=== PATIENT | female | born 1990 | race Caucasian/White ===

== ENCOUNTER 2017-12-25 08:20 | Emergency (ER) | payer MEDICAID ==
[~2017-12-25] VITALS: Ht 400 cm; Wt 92.1 kg
[~2017-12-25 08:20] MED LIST: ALBU8.5H8 IH; CYCL-1 PO; FIORINAL PO; FLUT16SP26 BOTHNARES; KEP500T PO; LEVE500T PO; ONDA4TAB6 PO; TIZA2CAP7 PO; [UNRECOGNIZED DRUG - OTHER]
[2017-12-25 08:25] VITALS: BP 156/101
[2017-12-25] MEDS ORDERED: CLIN300C53 PO (10:10)
[2017-12-25] MEDS ORDERED: HYDR-565 PO (10:10)
== END 2017-12-25 10:21 | disposition home or self-care (01) ==
LOC: ER 08:21
DX: K08.89 Other specified disorders of teeth and supporting structures (principal); E11.9 Type 2 diabetes mellitus without complications; G89.29 Other chronic pain; Z56.0 Unemployment, unspecified; Z88.0 Allergy status to penicillin; Z88.8 Allergy status to other drugs, medicaments and biological substances; Z79.899 Other long term (current) drug therapy
CPT/HCPCS: 99283

== ENCOUNTER 2018-09-17 17:43 | Emergency (ER) | payer MEDICARE, MEDICAID ==
[~2018-09-17] VITALS: Ht 157.5 cm; Wt 84.0 kg
[2018-09-17 17:47] VITALS: BP 133/82
[2018-09-17 19:12] LABS: CLARITY,URINE SLIGHTLY CLOUDY (Clear); COLOR,URINE YELLOW (Yellow); GLUCOSE, URINE NEGATIVE (Neg); KETONES,URINE 15 mg/dl (Neg); LEUKOCYTE ESTERASE ,URINE NEGATIVE (Neg); NITRITES, URINE NEGATIVE (Neg); OCCULT BLOOD,URINE NEGATIVE (Neg); PH,URINE 6.5 (4.8-8.0); PROTEIN,URINE NEGATIVE (Neg); URINE HCG POSITIVE (NEG); UROBILINOGEN,URINE 0.2 E.U/dL (0.2-1.0)
[2018-09-17 19:21] LABS: UA COLLECTION TYPE CLN CATCH MIDSTREAM
[2018-09-17 19:37] LABS: MUCUS STRANDS MANY /LPF (Neg); SQUAMOUS EPITHELIAL CELL,UR MANY /LPF (FEW); WBC,URINE 0-4 /HPF (0-4)
[2018-09-17 19:38] LABS: BACTERIA,URINE 2+ /HPF (Neg); RBC,URINE 0-2 /HPF (0-2)
== END 2018-09-17 20:02 | disposition home or self-care (01) ==
LOC: ER 17:44
DX: O26.891 Other specified pregnancy related conditions, first trimester (principal); O21.9 Vomiting of pregnancy, unspecified; J45.909 Unspecified asthma, uncomplicated; E11.9 Type 2 diabetes mellitus without complications; G89.29 Other chronic pain; Z90.49 Acquired absence of other specified parts of digestive tract; Z88.0 Allergy status to penicillin; Z79.899 Other long term (current) drug therapy; Z3A.01 Less than 8 weeks gestation of pregnancy; Z56.0 Unemployment, unspecified
CPT/HCPCS: 81001; 81025; 99283

== ENCOUNTER 2020-08-27 13:57 | Emergency (ER) | payer MEDICARE, MEDICAID ==
[~2020-08-27] VITALS: Ht 157.5 cm; Wt 90.9 kg
[2020-08-27 14:28] VITALS: BP 131/70
--- NOTE | 2020-08-27 14:38 | NUR ---
PATIENT IS HERE FOR 2 CHILDREN. STATES THAT [employer]ID[employer] WHERE SHE WORKS TESTED POSITIVE FOR COVID AND SHE THINKS SHE NEEDS TO BE TESTED.
== END 2020-08-27 15:44 | disposition home or self-care (01) ==
LOC: ER 13:58
DX: Z20.828 Contact with and (suspected) exposure to other viral communicable diseases (principal); J45.909 Unspecified asthma, uncomplicated; E11.9 Type 2 diabetes mellitus without complications; G89.29 Other chronic pain; F17.200 Nicotine dependence, unspecified, uncomplicated; F10.99 Alcohol use, unspecified with unspecified alcohol-induced disorder; Z90.49 Acquired absence of other specified parts of digestive tract; Z98.51 Tubal ligation status; Z88.0 Allergy status to penicillin; Z88.8 Allergy status to other drugs, medicaments and biological substances; Z79.899 Other long term (current) drug therapy
CPT/HCPCS: 99281

== ENCOUNTER 2021-05-29 16:38 | Emergency (ER) | payer MEDICARE, MEDICAID ==
[~2021-05-29] VITALS: Ht 157.5 cm; Wt 88.6 kg
[~2021-05-29 16:38] MED LIST changes: +ALBU8.5H17 IH; -ALBU8.5H8 IH
[2021-05-29 16:45] VITALS: BP 113/89
[2021-05-29] MEDS ORDERED: CLIN300C70 PO (16:46)
== END 2021-05-29 16:51 | disposition home or self-care (01) ==
LOC: ER 16:39
DX: K08.89 Other specified disorders of teeth and supporting structures (principal); K04.7 Periapical abscess without sinus; G40.909 Epilepsy, unspecified, not intractable, without status epilepticus; J45.909 Unspecified asthma, uncomplicated; E11.9 Type 2 diabetes mellitus without complications; G89.29 Other chronic pain; Z88.0 Allergy status to penicillin; Z88.8 Allergy status to other drugs, medicaments and biological substances; Z79.2 Long term (current) use of antibiotics; Z79.899 Other long term (current) drug therapy; Z90.49 Acquired absence of other specified parts of digestive tract; Z98.51 Tubal ligation status; Z72.89 Other problems related to lifestyle
CPT/HCPCS: 99283

== ENCOUNTER 2022-07-13 15:46 | Emergency (ER) | payer MEDICARE, MEDICAID ==
[~2022-07-13] VITALS: Ht 157.5 cm; Wt 94.0 kg
[2022-07-13 16:24] VITALS: BP 136/92
[2022-07-13] MEDS ORDERED: CLIN300C54 PO (18:06)
[2022-07-13] MEDS ORDERED: HYDR-3965 PO (18:06)
[2022-07-13] MEDS ORDERED: IBUP-1986 PO (18:06)
== END 2022-07-13 18:33 | disposition home or self-care (01) ==
LOC: ER 15:47
DX: K04.7 Periapical abscess without sinus (principal); J45.909 Unspecified asthma, uncomplicated; E11.9 Type 2 diabetes mellitus without complications; G89.29 Other chronic pain; Z86.69 Personal history of other diseases of the nervous system and sense organs; Z90.89 Acquired absence of other organs; Z98.51 Tubal ligation status; Z72.89 Other problems related to lifestyle; Z88.0 Allergy status to penicillin; Z88.8 Allergy status to other drugs, medicaments and biological substances; Z79.2 Long term (current) use of antibiotics; Z79.899 Other long term (current) drug therapy
CPT/HCPCS: 99283

== ENCOUNTER 2022-08-13 08:45 | Emergency (ER) | payer MEDICARE, MEDICAID ==
[~2022-08-13] VITALS: Ht 157.5 cm; Wt 94.0 kg
[~2022-08-13 08:45] MED LIST changes: +HYDR-3965 PO; +IBUP-1986 PO
[2022-08-13 08:59] VITALS: BP 135/85
[2022-08-13] MEDS ORDERED: CLIN150C2 PO (10:13)
[2022-08-13] MEDS ORDERED: NAPR-56 PO (10:13)
== END 2022-08-13 10:28 | disposition home or self-care (01) ==
LOC: ER 08:45
DX: K04.7 Periapical abscess without sinus (principal); J45.909 Unspecified asthma, uncomplicated; E11.9 Type 2 diabetes mellitus without complications; G89.29 Other chronic pain; M54.50 Low back pain, unspecified; Z88.0 Allergy status to penicillin; Z88.8 Allergy status to other drugs, medicaments and biological substances; Z98.890 Other specified postprocedural states; Z98.51 Tubal ligation status
CPT/HCPCS: 99283

== ENCOUNTER 2022-08-22 12:41 | Emergency (ER) | payer MEDICARE, MEDICAID ==
[~2022-08-22 12:41] MED LIST changes: +CLIN150C2 PO; -HYDR-3965 PO; +NAPR-56 PO
== END 2022-08-22 14:29 | disposition left against medical advice (07) ==
LOC: ER 12:41
DX: S61.219A Laceration without foreign body of unspecified finger without damage to nail, initial encounter (principal); Z53.21 Procedure and treatment not carried out due to patient leaving prior to being seen by health care provider; X58.XXXA Exposure to other specified factors, initial encounter; Y93.89 Activity, other specified; Y92.89 Other specified places as the place of occurrence of the external cause; Y99.8 Other external cause status

== ENCOUNTER → 2022-09-06 | Emergency (ER) | payer OTHER, MEDICARE, MEDICAID ==
[~2022-09-06] VITALS: Ht 157.5 cm; Wt 90.9 kg
[~2022-09-06] MED LIST changes: -CLIN150C2 PO; +TRAM50TA2 PO
[2022-09-06 08:45] VITALS: BP 128/84
== END | disposition home or self-care (01) ==
LOC: ER 08:30
DX: S13.4XXA Sprain of ligaments of cervical spine, initial encounter (principal); M54.59 Other low back pain; E11.9 Type 2 diabetes mellitus without complications; J45.909 Unspecified asthma, uncomplicated; Z90.49 Acquired absence of other specified parts of digestive tract; Z88.0 Allergy status to penicillin; Z88.8 Allergy status to other drugs, medicaments and biological substances; Z79.899 Other long term (current) drug therapy; V89.2XXA Person injured in unspecified motor-vehicle accident, traffic, initial encounter; Y93.89 Activity, other specified; Y92.89 Other specified places as the place of occurrence of the external cause; Y99.8 Other external cause status
CPT/HCPCS: 99283

== ENCOUNTER 2022-10-26 15:33 | Emergency (ER) | payer MEDICARE, MEDICAID ==
[~2022-10-26] VITALS: Ht 157.5 cm; Wt 97.7 kg
[~2022-10-26 15:33] MED LIST changes: -NAPR-56 PO; -TRAM50TA2 PO
[2022-10-26] MEDS ORDERED: ibuprofen 200mg tablet PO ONE (20:30)
[2022-10-26] MEDS ORDERED: traMADol 50MG tablet PO ONE ×2 (20:30→20:40)
[2022-10-26] MEDS ORDERED: TRAM1TAB7 PO (20:32)
[2022-10-26 20:39] VITALS: BP 132/86
== END 2022-10-26 20:40 | disposition home or self-care (01) ==
LOC: ER 15:34
DX: M54.50 Low back pain, unspecified (principal); G89.29 Other chronic pain; J45.909 Unspecified asthma, uncomplicated; Z88.0 Allergy status to penicillin; Z88.5 Allergy status to narcotic agent; Z98.51 Tubal ligation status; Z98.890 Other specified postprocedural states
CPT/HCPCS: 72100; 99283